=== PATIENT | male | born 1950 | race Caucasian/White ===

== ENCOUNTER 2016-12-29 08:46 | Emergency (ER) | payer MEDICARE, OTHER ==
[2016-12-29] MEDS ORDERED: NS 0.9% 1000 ML* 1,000 ML IV SCH (10:30)
[2016-12-29 11:06] LABS: Hematocrit 47 % (42-52); Hemoglobin 15.6 g/dl (14.0-18.0); Mean Corpuscular HGB Conc 33 g/dl (31-36); Mean Corpuscular Hemoglobin 29 pg (27-31); Mean Corpuscular Volume 89 fL (80-94); Mean Platelet Volume 8 um3 (7.4-10.4); Red Blood Count 5.31 10^6/ul (4.0-5.4); Red Cell Distribution Width 14 % (10.5-15); White Blood Count 6.2 10^3/ul (3.5-10.8)
[2016-12-29 11:07] LABS: Urine Bilirubin Negative (Negative); Urine Glucose Negative (Negative); Urine Nitrite Negative (Negative)
[2016-12-29 11:23] LABS: ALT 19 U/L (7-52); AST 20 U/L (13-39); Albumin 4.6 g/dL (3.2-5.2); Alkaline Phosphatase 64 U/L (34-104); Anion Gap 5 mmol/L (2-11); Blood Urea Nitrogen 12 mg/dL (6-24); C Reactive Protein < 1.00 mg/L (< 5.00); CO2 Carbon Dioxide 28 mmol/L (22-32); Calcium 9.3 mg/dL (8.6-10.3); Chloride 102 mmol/L (101-111); EGFR African American 105.2 (>60); EGFR Non-African American 81.8 (>60); Glucose 108 mg/dL (70-100); Lipase < 10 U/L (11.0-82.0); Potassium 4.2 mmol/L (3.5-5.0); Sodium 135 mmol/L (133-145); Total Protein 7.6 g/dL (6.4-8.9)
[2016-12-29] MEDS ORDERED: Iohexol 300* (CONTRAST) 10 ML SDV IV ONE (11:40)
--- NOTE | 2016-12-29 13:27 | RAD ---
Indication: Lower abdominal pain. Contrast: Administered 91.0 ml of OMNIPAQUE 300 mgi/ml CT of the abdomen and pelvis was performed after oral and IV contrast administration. Coronal and sagittal reconstructed images were obtained. The lung bases demonstrate no pleural fluid, nodules or masses. Heart is of normal size without evidence of pericardial effusion. The liver is normal in size. There is a lobulated low density lesion in the dome of the posterior segment of the right lobe of liver measuring up to 2.5 x 1.8 cm likely representing a cyst. No intrahepatic duct dilatation is noted. Common duct is not dilated. The gallbladder demonstrates no calcified gallstones, pericholecystic fluid or wall thickening. The pancreas demonstrates no mass or pancreatic duct dilatation. The spleen is normal in size. No adrenal lesions are noted. The kidneys demonstrates multiple cortical cysts. No hydronephrosis of either kidney is noted. No hydroureter is noted. Atherosclerotic aorta is noted. Retroaortic left renal vein is noted. No dilated loops of bowel are noted. CT of the pelvis demonstrates contrast in the colon. The prostate is markedly enlarged with diffuse wall thickening of the urinary bladder likely due to chronic outlet obstruction. Small bowel demonstrates no abnormal dilatation. Appendix is visualized and is normal. No hernias are noted. The urinary bladder is unremarkable. IMPRESSION: NO ABNORMAL MASSES OR FLUID COLLECTIONS ARE NOTED. NO EVIDENCE OF BOWEL OBSTRUCTION IS NOTED. THERE IS ENLARGED PROSTATE WITH LIKELY CHRONIC OUTLET OBSTRUCTION. BILATERAL RENAL CYSTS AND LIKELY HEPATIC CYST IS PRESENT.
[2016-12-29 13:41] VITALS: BP 164/84
--- NOTE | 2016-12-30 10:25 | ED ---
Bassam Henderson Auryana, scribed for Teto Reagan MD on 12/29/16 at 1020 . Abdominal Pain/Male - HPI Summary HPI Summary: 66 year old male presents with abdominal pain starting a few days ago, worse since today. 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 Patient reports that a few days ago he was attempting to move or lift a heavy object and afterwards felt an abdominal ache. He denies any fever, chills, diaphoresis, vomiting, or any abdominal "lumps". He reports normal BMs this morning and yesterday. The pain is not aggravated by coughing or moving the lower extremities. Patient reports a similar episode in the past - Dx: muscle strain. PMHx is significant for colon resection s/p diverticulitis, IBS and inguinal hernia. - History of Current Complaint Chief Complaint: EDAbdPain Stated Complaint: LOWER ABD PAIN Time Seen by Provider: 12/29/16 09:37 Hx Obtained From: Patient Onset/Duration: Sudden Onset, Lasting Days - FEW DAYS AGO, Still Present, Worse Since - TODAY Timing: Constant Severity Initially: Mild Severity Currently: Moderate Pain Intensity: 4 Pain Scale Used: 0-10 Numeric Location: Diffuse Aggravating Factor(s): Nothing Associated Signs And Symptoms: Negative: Diaphoresis, Fever, Vomiting Similar Episode/Dx As:: yes see HPI - Allergies/Home Medications Allergies/Adverse Reactions: Allergies Allergy/AdvReac Type Severity Reaction Status Date / Time No Known Allergies Allergy Verified 12/29/16 09:05 PMH/Surg Hx/FS Hx/Imm Hx GI History: Reports: Hx Diverticulosis - diverticulitis withcolon resection , Other GI Disorders - inguinal hernia, IBS Infectious Disease History: No Infectious Disease History: Denies: Traveled Outside the [place] in Last 30 Days - Family History Known Family History: Negative: Cardiac Disease, Hypertension, Diabetes - Social History Occupation: Retired Lives: With Family Alcohol Use: Daily Alcohol Amount: 1 beer or wine w/dinner Hx Substance Use: No Substance Use Type: Reports: None Smoking Status (MU): Never Smoked Tobacco Review of Systems Constitutional: Negative Negative: Fever, Chills, Skin Diaphoresis Eyes: Negative Negative: Erythema ENT: Negative Negative: Sore Throat Cardiovascular: Negative Negative: Chest Pain Respiratory: Negative Negative: Shortness Of Breath, Cough Positive: Abdominal Pain, Other - nml Bms. Negative: Vomiting Genitourinary: Negative Negative: dysuria, hematuria Musculoskeletal: Negative Negative: Myalgia, Edema Skin: Negative Negative: Rash Neurological: Negative, Other - no dizziness Psychological: Normal All Other Systems Reviewed And Are Negative: Yes Physical Exam - Summary Physical Exam Summary: Constitutional: Well-developed, Well-nourished, Alert. (-) Distressed Skin: Warm, Dry HENT: Normocephalic; Atraumatic Eyes: Conjunctiva normal Neck: Musculoskeletal ROM normal neck. (-) JVD, (-) Stridor, (-) Tracheal deviation Cardio: Rhythm regular, rate normal, Heart sounds normal; Intact distal pulses; The pedal pulses are 2+ and symmetric. Radial pulses are 2+ and symmetric. (-) Murmur Pulmonary/Chest wall: Effort normal. (-) Respiratory distress, (-) Wheezes, (-) Rales Abd: Soft, (-) Tenderness, (-) Distension, (-) Guarding, (-) Rebound. No palpable hernia while standing or lying down. No significant tenderness on exam. : Normal Exam. Musculoskeletal: (-) Edema Lymph: (-) Cervical adenopathy Neuro: Alert, Oriented x3 Psych: Mood and affect Normal Triage Information Reviewed: Yes Vital Signs On Initial Exam: Initial Vitals Temp Pulse Resp BP Pulse Ox 98.0 F 78 18 166/95 99 12/29/16 08:48 12/29/16 08:48 12/29/16 08:48 12/29/16 08:48 12/29/16 08:48 Vital Signs Reviewed: Yes Male Genital Exam: Positive: normal genitalia, no hernia. Negative: inguinal tenderness, scrotum tenderness (R), scrotum tenderness (L) - Deepa Coma Scale Coma Scale Total: 15 Diagnostics - Vital Signs Vital Signs Temp Pulse Resp BP Pulse Ox 12/29/16 09:00 98 F 78 16 166/95 99 12/29/16 08:48 98.0 F 78 18 166/95 99 - Laboratory Lab Results: Lab Results 12/29/16 12/29/16 12/29/16 Range/Units 10:45 10:45 10:45 WBC 6.2 (3.5-10.8) 10^3/ul RBC 5.31 (4.0-5.4) 10^6/ul Hgb 15.6 (14.0-18.0) g/dl Hct 47 (42-52) % MCV 89 (80-94) fL MCH 29 (27-31) pg MCHC 33 (31-36) g/dl RDW 14 (10.5-15) % Plt Count 186 (150-450) 10^3/ul MPV 8 (7.4-10.4) um3 Neut % (Auto) 70.0 (38-83) % Lymph % (Auto) 22.1 L (25-47) % [place] % (Auto) 6.2 (1-9) % Eos % (Auto) 0.9 (0-6) % Baso % (Auto) 0.8 (0-2) % Absolute Neuts (auto) 4.4 (1.5-7.7) 10^3/ul Absolute Lymphs (auto) 1.4 (1.0-4.8) 10^3/ul Absolute Monos (auto) 0.4 (0-0.8) 10^3/ul Absolute Eos (auto) 0.1 (0-0.6) 10^3/ul Absolute Basos (auto) 0 (0-0.2) 10^3/ul Absolute Nucleated RBC 0 10^3/ul Nucleated RBC % 0 Sodium 135 (133-145) mmol/L Potassium 4.2 (3.5-5.0) mmol/L Chloride 102 (101-111) mmol/L Carbon Dioxide 28 (22-32) mmol/L Anion Gap 5 (2-11) mmol/L BUN 12 (6-24) mg/dL Creatinine 0.92 (0.67-1.17) mg/dL Est GFR ( Amer) 105.2 (>60) Est GFR (Non-Af Amer) 81.8 (>60) BUN/Creatinine Ratio 13.0 (8-20) Glucose 108 H (70-100) mg/dL Lactic Acid (0.5-2.0) mmol/L Calcium 9.3 (8.6-10.3) mg/dL Total Bilirubin 0.60 (0.2-1.0) mg/dL AST 20 (13-39) U/L ALT 19 (7-52) U/L Alkaline Phosphatase 64 (34-104) U/L C-Reactive Protein < 1.00 (< 5.00) mg/L Total Protein 7.6 (6.4-8.9) g/dL Albumin 4.6 (3.2-5.2) g/dL Globulin 3.0 (2-4) g/dL Albumin/Globulin Ratio 1.5 (1-3) Lipase < 10 L (11.0-82.0) U/L Urine Color Straw Urine Appearance Clear Urine pH 8.0 (5-9) Ur Specific [place] 1.006 L (1.010-1.030) Urine Protein Negative (Negative) Urine Ketones Negative (Negative) Urine Blood Negative (Negative) Urine Nitrate Negative (Negative) Urine Bilirubin Negative (Negative) Urine Urobilinogen Negative (Negative) Ur Leukocyte Esterase Negative (Negative) Urine Glucose Negative (Negative) 12/29/16 Range/Units 10:45 WBC (3.5-10.8) 10^3/ul RBC (4.0-5.4) 10^6/ul Hgb (14.0-18.0) g/dl Hct (42-52) % MCV (80-94) fL MCH (27-31) pg MCHC (31-36) g/dl RDW (10.5-15) % Plt Count (150-450) 10^3/ul MPV (7.4-10.4) um3 Neut % (Auto) (38-83) % Lymph % (Auto) (25-47) % [place] % (Auto) (1-9) % Eos % (Auto) (0-6) % Baso % (Auto) (0-2) % Absolute Neuts (auto) (1.5-7.7) 10^3/ul Absolute Lymphs (auto) (1.0-4.8) 10^3/ul Absolute Monos (auto) (0-0.8) 10^3/ul Absolute Eos (auto) (0-0.6) 10^3/ul Absolute Basos (auto) (0-0.2) 10^3/ul Absolute Nucleated RBC 10^3/ul Nucleated RBC % Sodium (133-145) mmol/L Potassium (3.5-5.0) mmol/L Chloride (101-111) mmol/L Carbon Dioxide (22-32) mmol/L Anion Gap (2-11) mmol/L BUN (6-24) mg/dL Creatinine (0.67-1.17) mg/dL Est GFR ( Amer) (>60) Est GFR (Non-Af Amer) (>60) BUN/Creatinine Ratio (8-20) Glucose (70-100) mg/dL Lactic Acid 1.2 (0.5-2.0) mmol/L Calcium (8.6-10.3) mg/dL Total Bilirubin (0.2-1.0) mg/dL AST (13-39) U/L ALT (7-52) U/L Alkaline Phosphatase (34-104) U/L C-Reactive Protein (< 5.00) mg/L Total Protein (6.4-8.9) g/dL Albumin (3.2-5.2) g/dL Globulin (2-4) g/dL Albumin/Globulin Ratio (1-3) Lipase (11.0-82.0) U/L Urine Color Urine Appearance Urine pH (5-9) Ur Specific [place] (1.010-1.030) Urine Protein (Negative) Urine Ketones (Negative) Urine Blood (Negative) Urine Nitrate (Negative) Urine Bilirubin (Negative) Urine Urobilinogen (Negative) Ur Leukocyte Esterase (Negative) Urine Glucose (Negative) Result Diagrams: 12/29/16 10:45 12/29/16 10:45 Lab Statement: Any lab studies that have been ordered have been reviewed, and results considered in the medical decision making process. - CT ABD/PEL CT Interpretation: Positive (See Comments) - IMPRESSION: NO ABNORMAL MASSES OR FLUID COLLECTIONS ARE NOTED. NO EVIDENCE OF BOWEL OBSTRUCTION IS NOTED. THERE IS ENLARGED PROSTATE WITH LIKELY CHRONIC OUTLET OBSTRUCTION. BILATERAL RENAL CYSTS AND LIKELY HEPATIC CYST IS PRESENT. CT Interpretation Completed By: Radiologist Re-Evaluation - Re-Evaluation First Eval Re-Evaluation Time: 13:36 - DISCUSSED D/C HOME Change: Improved - PAIN IS IMPROVED Abdominal Pain Fem Course/Dx - Course Assessment/Plan: 66 year old male presents with abdominal pain starting a few days ago, worse since today. 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 Patient reports that a few days ago he was attempting to move or lift a heavy object and afterwards felt an abdominal ache. He denies any fever, chills , diaphoresis, vomiting, or any abdominal "lumps". He reports normal BMs this morning and yesterday. The pain is not aggravated by coughing or moving the lower extremities. Patient reports a similar episode in the past - Dx: muscle strain. PMHx is significant for colon resection s/p diverticulitis, IBS and inguinal hernia. Test results show glucose 108, lactic acid 1.2, CRP<1.00, and lipase <10. LFTs are WNL. UA specific gravity is 1.[address] ABD/PEL- IMPRESSION: NO ABNORMAL MASSES OR FLUID COLLECTIONS ARE NOTED. NO EVIDENCE OF BOWEL OBSTRUCTION IS NOTED. THERE IS ENLARGED PROSTATE WITH LIKELY CHRONIC OUTLET OBSTRUCTION. BILATERAL RENAL CYSTS AND LIKELY HEPATIC CYST IS PRESENT. Patient will be discharged home with follow up to PCP. Patient is agreeable with plan. DDx: abdominal strain, IBS, recurrent hernia, incarcerated bowel, diverticulitis. Dx: lower abdominal pain, enlarged prostate , hepatic cysts, renal cysts. - Diagnoses Differential Diagnosis/HQI/PQRI: Diverticulitis, Other - abdominal strain, IBS, recurrent hernia, incarcerated bowel Provider Diagnoses: Enlarged prostate, Renal cyst, Lower abdominal pain, Hepatic cyst Discharge - Discharge Plan Condition: Stable Disposition: HOME Patient Education Materials: Kidney Cyst (ED), Acute Abdominal Pain (ED) Referrals: Non Staff,Doctor [Primary Care Provider] - 2 Days Additional Instructions: RETURN TO THE EMERGENCY DEPARTMENT FOR CHANGING OR WORSENING SYMPTOMS The documentation as recorded by the Bassam jean Auryana accurately reflects the service I personally performed and the decisions made by , Teto Reagan MD.
== END 2016-12-29 13:50 | disposition home or self-care (01) ==
LOC: ED 08:46
DX: N40.0 Benign prostatic hyperplasia without lower urinary tract symptoms (principal); N28.1 Cyst of kidney, acquired; K76.89 Other specified diseases of liver; R10.30 Lower abdominal pain, unspecified
CPT/HCPCS: 36415; 74177; 80053; 81003; 83605; 83690; 85025; 86140; 96360; 96361; 99282; Q9967